=== PATIENT | female | born 1995 | race Caucasian/White ===

== ENCOUNTER 2023-08-19 08:46 | Inpatient (IN) | payer OTHER ==
[~2023-08-19] VITALS: Ht 157.5 cm; Wt 77.2 kg
[2023-08-19] VITALS (33 sets, daily range): BP systolic 109–154; BP diastolic 58–105
[2023-08-19] MEDS ORDERED: ACET-897 PO (09:21)
[2023-08-19] MEDS ORDERED: PEPT262C2 PO (09:22)
[2023-08-19] MEDS ORDERED: LACTATED RINGER'S 1000 ML IV STA (09:31)
[2023-08-19] MEDS ORDERED: UNIS25TA3 PO (09:34)
[2023-08-19] MEDS ORDERED: HOME MED LIST COMPLETE! XX SCH (09:35)
[2023-08-19] MEDS ORDERED: ALBUTEROL 90 MCG/ACT 8GM HFA INHALER INH PRN (09:35)
[2023-08-19] MEDS ORDERED: OXYTOCIN DRIP 30 UNITS in IV 1 EA IV PRN ×6 (09:35)
[2023-08-19] MEDS ORDERED: OXYTOCIN INJ 10UNITS/ML 1ML VIAL IM PRN (09:35)
[2023-08-19] MEDS ORDERED: CARBOPROST TROMETHAMINE 250 MCG/ML AMP IM PRN (09:35)
[2023-08-19] MEDS ORDERED: LR 1,000 ML IV SCH (09:35)
[2023-08-19] MEDS ORDERED: METHYLERGONOVINE MALEATE 0.2MG/ML 1ML VIAL IM PRN (09:35)
[2023-08-19] MEDS ORDERED: TRANEXAMIC ACID INJection 1,000 MG in NS 100 ML IV PRN (09:35)
[2023-08-19] MEDS ORDERED: LIDOCAINE 1% MDV 20ML VIAL INFIL PRN (09:35)
[2023-08-19 10:19] LABS: HEMATOCRIT 35.4 % (36.0-47.0); HEMOGLOBIN 11.3 g/dl (12.0-15.5); MEAN CORPUSCULAR HGB CONC 31.9 g/dl (32.0-36.5); MEAN CORPUSCULAR VOLUME 84.5 fl (80.0-96.0); PLATELET COUNT, AUTOMATED 266 10^3/uL (150-450); RED BLOOD COUNT 4.19 10^6/uL (4.00-5.40); WHITE BLOOD COUNT 11.9 10^3/uL (4.0-10.0)
[2023-08-19] MEDS ORDERED: NALBUPHINE HCL 1MG/0.1ML (100MG/10ML) MDV IV PRN (10:20)
[2023-08-19] MEDS ORDERED: PROMETHAZINE 25MG/ML 1ML VIAL IV ONE (10:20)
[2023-08-19 10:56] LABS: URIC ACID 5.9 MG/DL (3.1-7.8)
[2023-08-19 10:58] LABS: LDH LACTATE DEHYDROGENASE 193 U/L (120-246)
[2023-08-19 10:59] LABS: ALT/SGPT 10 U/L (7.0-40); AST/SGOT 10 U/L (<34); BILIRUBIN,TOTAL 0.2 MG/DL (0.3-1.2); CREATININE FOR GFR 0.53 MG/DL (0.55-1.30); GLOMERULAR FILTRATION RATE > 60.0 (>60)
[2023-08-19] MEDS ORDERED: LR 500 ML IV PRN (12:55)
[2023-08-19] MEDS ORDERED: EPIDURAL/PCA KEYS XX PRN (12:55)
[2023-08-19] MEDS ORDERED: ONDANSETRON 4MG 2ML VIAL IV PRN (12:55)
[2023-08-19] MEDS ORDERED: diphenhydrAMINE 50MG/ML VIAL IV PRN (12:55)
[2023-08-19] MEDS ORDERED: NALOXONE INJ 0.4MG/1ML VIAL IV PRN (12:55)
[2023-08-19] MEDS ORDERED: ePHEDrine SULFATE 25 MG/5 ML(5MG/ML) SYRINGE IVP PRN (12:55)
[2023-08-19] MEDS ORDERED: FENTANYL 2MCG/ML ROPIVACAINE 0.2% IN 0.9% NACL 100ML IVBAG As Ordered ONE (12:56)
[2023-08-19 13:10] LABS: APPEARANCE, URINE CLOUDY (CLEAR); BACTERIA, URINE AUTO NEGATIVE (NEGATIVE); BILIRUBIN, URINE AUTO NEGATIVE (NEGATIVE); BLOOD, URINE BLOOD NEGATIVE (NEGATIVE); COLOR, URINE YELLOW (YELLOW); GLUCOSE, URINE (UA) AUTO NEGATIVE (NEGATIVE); KETONE, URINE AUTO TRACE mg/dL (NEGATIVE); LEUKOCYTE ESTERASE, URINE AUTO 1+ (NEGATIVE); MUCUS, URINE SMALL (NEGATIVE); NITRITE, URINE AUTO NEGATIVE (NEGATIVE); PROTEIN, URINE AUTO 1+ mg/dL (NEGATIVE); RBC, URINE AUTO 0 /HPF (0-3); SPECIFIC GRAVITY URINE AUTO 1.032 (1.002-1.035); SQUAMOUS EPITHELIAL CELL UR AU 10 /HPF (0-6); UROBILINOGEN, URINE AUTO 0.2 mg/dL (0.0-2.0); WBC, URINE AUTO 6 /HPF (0-3)
[2023-08-19] MEDS ORDERED: OXYTOCIN DRIP 30 UNITS in IV 1 EA IV SCH (14:50)
[2023-08-19] MEDS: LR 1,000 ML IV SCH ×2 (15:27→23:21)
[2023-08-19] MEDS: FENTANYL/ROPIVACAINE/NACL BAG 100 ML EPIDURAL SCH ×2 (15:27→23:21)
[2023-08-19 16:06] LABS: TOTAL PROTEIN,RANDOM URINE 64.4 MG/DL (0.0-14.0)
[2023-08-19 16:11] LABS: CREATININE,RANDOM URINE 212.8 MG/DL
[2023-08-20] VITALS (9 sets, daily range): BP systolic 119–136; BP diastolic 68–89; TEMP 98.3–98.5; O2SAT 97–99
[2023-08-20] MEDS: LR 1,000 ML IV SCH ×3 (00:35→16:35)
[2023-08-20] MEDS ORDERED: METHYLERGONOVINE MALEATE 0.2 MG TAB PO PRN (00:35)
[2023-08-20] MEDS ORDERED: MOM 30ML SUSPENSION UDC PO PRN (00:35)
[2023-08-20] MEDS ORDERED: ACETAMINOPHEN TAB 650MG DOSE (2X325MG) PO PRN (00:35)
[2023-08-20] MEDS ORDERED: RHOGAM 300MCG (1500IU) INJ IM SCH (00:35)
[2023-08-20] MEDS ORDERED: OXYTOCIN DRIP 30 UNITS in IV 1 EA IV SCH ×4 (00:35)
[2023-08-20] MEDS ORDERED: DIBUCAINE 1% OINTMENT 30GM TOP PRN (00:35)
[2023-08-20] MEDS ORDERED: DOCUSATE SODIUM 100MG CAPSULE PO PRN (00:35)
[2023-08-20] MEDS ORDERED: IBUPROFEN 600MG TAB PO PRN (00:35)
[2023-08-20] MEDS ORDERED: ONDANSETRON 4MG 2ML VIAL IV PRN (00:35)
[2023-08-20] MEDS ORDERED: oxyCODONE 5MG TAB PO PRN (01:40)
[2023-08-20] MEDS: IBUPROFEN 800 MG TAB PO PRN ×2 (02:54→11:53)
[2023-08-20] MEDS: ACETAMINOPHEN 500 MG TAB PO PRN ×3 (05:54→19:32)
[2023-08-20 06:41] LABS: HEMATOCRIT 21.3 % (36.0-47.0); MEAN CORPUSCULAR HEMOGLOBIN 27.3 pg (27.0-33.0); MEAN CORPUSCULAR HGB CONC 32.4 g/dl (32.0-36.5); MEAN CORPUSCULAR VOLUME 84.2 fl (80.0-96.0); PLATELET COUNT, AUTOMATED 192 10^3/uL (150-450); RED BLOOD COUNT 2.53 10^6/uL (4.00-5.40); WHITE BLOOD COUNT 15.6 10^3/uL (4.0-10.0)
[2023-08-20 06:53] LABS: HEMOGLOBIN 6.9 g/dl (12.0-15.5)
[2023-08-20 07:32] LABS: MEAN CORPUSCULAR HEMOGLOBIN 26.7 pg (27.0-33.0); MEAN CORPUSCULAR VOLUME 83.5 fl (80.0-96.0); PLATELET COUNT, AUTOMATED 187 10^3/uL (150-450); RED BLOOD COUNT 2.43 10^6/uL (4.00-5.40); WHITE BLOOD COUNT 14.7 10^3/uL (4.0-10.0)
[2023-08-20 07:34] LABS: HEMATOCRIT 20.3 % (36.0-47.0)
[2023-08-20] MEDS ORDERED: diphenhydrAMINE 25MG CAP PO ONE (07:35)
[2023-08-20 07:36] LABS: HEMOGLOBIN 6.5 g/dl (12.0-15.5)
[2023-08-20] MEDS: oxyCODONE 5MG TAB PO PRN ×2 (07:50→14:43)
[2023-08-20] MEDS: PRENATAL VITAMINS CHEWABLE TABLET PO SCH (09:22)
[2023-08-20 11:08] LABS: HEMATOCRIT 24.8 % (36.0-47.0); HEMOGLOBIN 8.2 g/dl (12.0-15.5); MEAN CORPUSCULAR HEMOGLOBIN 27.2 pg (27.0-33.0); MEAN CORPUSCULAR HGB CONC 33.1 g/dl (32.0-36.5); MEAN CORPUSCULAR VOLUME 82.1 fl (80.0-96.0); PLATELET COUNT, AUTOMATED 199 10^3/uL (150-450); RED BLOOD COUNT 3.02 10^6/uL (4.00-5.40); WHITE BLOOD COUNT 15.6 10^3/uL (4.0-10.0)
[2023-08-21] MEDS: LR 1,000 ML IV SCH ×2 (00:35→00:40)
[2023-08-21 02:00] VITALS: BP 120/75; O2SAT 100
[2023-08-21] MEDS: ACETAMINOPHEN 500 MG TAB PO PRN (04:07)
[2023-08-21 05:51] VITALS: BP 120/69; O2SAT 97
[2023-08-21] MEDS: PRENATAL VITAMINS CHEWABLE TABLET PO SCH (07:54)
[2023-08-21] MEDS ORDERED: PRENCHW PO (09:14)
[2023-08-21] MEDS ORDERED: IBUP-1022 PO (09:14)
[2023-08-21] MEDS ORDERED: ACET1TAB55 PO (09:14)
[2023-08-21] MEDS ORDERED: COLA100C5 PO (09:14)
[2023-08-21 10:00] VITALS: BP 97/60; O2SAT 97
[2023-08-21] MEDS ORDERED: INFLUENZA QUADRIVALENT PF VACCINE 0.5ML SYRINGE IM.IMMUN ONE (12:00)
[2023-08-22] MEDS ORDERED: MEASLES,MUMPS,RUBELLA VACCINE INJ (MMR-II) SC.IMMUN ONE (09:00)
== END 2023-08-21 12:55 | disposition home or self-care (01) | DRG 807 ==
LOC: EDBD 08:46 → M LDO 08:46 → M LDI 09:39 → M OBS 08-20 02:40
PROVIDERS: ADMIT Obstetrics & Gynecology; ATTEND Obstetrics & Gynecology
PROC: 10907ZC Drainage of Amniotic Fluid, Therapeutic from Products of Conception, Via Natural or Artificial Opening (ICD-10-PCS; 2023-08-19)
PROC: 10E0XZZ Delivery of Products of Conception, External Approach (ICD-10-PCS; principal; 2023-08-20)
PROC: 0KQM0ZZ Repair Perineum Muscle, Open Approach (ICD-10-PCS; 2023-08-20)
PROC: 30233N1 Transfusion of Nonautologous Red Blood Cells into Peripheral Vein, Percutaneous Approach (ICD-10-PCS; 2023-08-20)
DX: O48.0 Post-term pregnancy (principal); Z37.0 Single live birth; Z3A.40 40 weeks gestation of pregnancy; O32.6XX0 Maternal care for compound presentation, not applicable or unspecified; O70.1 Second degree perineal laceration during delivery; O99.02 Anemia complicating childbirth; D64.9 Anemia, unspecified